=== PATIENT | male | born 1945 | race Caucasian/White ===

== ENCOUNTER 2019-06-10 09:51 | Emergency (ER) | payer BC, MEDICARE ==
[~2019-06-10] VITALS: Ht 188 cm; Wt 190.0 kg
[2019-06-10] MEDS ORDERED: CARV6.25 (10:01)
[2019-06-10] MEDS ORDERED: CVS1TAB PO (10:01)
[2019-06-10] MEDS ORDERED: FAMO40TA3 (10:01)
[2019-06-10] MEDS ORDERED: MOME50SP NARES (10:01)
[2019-06-10] MEDS ORDERED: NITR4TASL SL (10:01)
[2019-06-10] MEDS ORDERED: ATOR1TAB21 (10:01)
[2019-06-10] MEDS ORDERED: XARE20TA (10:01)
[2019-06-10] MEDS ORDERED: ENTR1TAB (10:01)
[2019-06-10] MEDS ORDERED: LEVO88TA3 (10:01)
[2019-06-10] MEDS ORDERED: LASI20TA3 PO (10:01)
[2019-06-10 10:40] LABS: BASO % 0.6 % (0.0-1.0); EOS # 0.1 10^3/uL (0.0-0.5); HEMATOCRIT 43.8 % (42.0-52.0); HEMOGLOBIN 14.5 g/dl (13.5-17.5); LYMPH # 0.9 10^3/uL (1.5-5.0); LYMPH % 18.2 % (24.0-44.0); MEAN CORPUSCULAR HEMOGLOBIN 32.6 pg (27.0-33.0); MEAN CORPUSCULAR HGB CONC 33.1 g/dl (32.0-36.5); MEAN CORPUSCULAR VOLUME 98.4 fl (80.0-96.0); MONO # 0.5 10^3/uL (0.0-0.8); MONO % 10.2 % (0.0-5.0); NEUTROPHILS # 3.4 10^3/uL (1.5-8.5); NEUTROPHILS % 68.8 % (36.0-66.0); PLATELET COUNT, AUTOMATED 167 10^3/uL (150-450); RED BLOOD COUNT 4.45 10^6/uL (4.30-6.10); WHITE BLOOD COUNT 4.9 10^3/uL (4.0-10.0)
[2019-06-10] MEDS ORDERED: NS 500 ML IV ONE (10:45)
[2019-06-10 10:52] LABS: INR 1.64; PROTHROMBIN TIME 19.2 SECONDS (11.8-14.0)
[2019-06-10 11:11] LABS: ALBUMIN 3.6 GM/DL (3.2-5.2); ALT/SGPT 23 U/L (12-78); BILIRUBIN,DIRECT 0.2 MG/DL (0.0-0.2); BILIRUBIN,TOTAL 0.8 MG/DL (0.2-1.0); BLOOD UREA NITROGEN 16 MG/DL (7-18); CALCIUM LEVEL 8.8 MG/DL (8.8-10.2); CARBON DIOXIDE LEVEL 28 MEQ/L (21-32); CHLORIDE LEVEL 105 MEQ/L (98-107); CK-MB VALUE MASS 1.8 NG/ML (<3.6); CPK CREATINE PHOSPHOKINASE 59 U/L (39-308); CREATININE FOR GFR 0.98 MG/DL (0.70-1.30); FREE T4 1.31 NG/DL (0.76-1.46); GLOMERULAR FILTRATION RATE > 60.0 (>42); GLUCOSE, FASTING 101 MG/DL (70-100); MAGNESIUM LEVEL 2.3 MG/DL (1.8-2.4); MB/CK RELATIVE INDEX 3.05 (< OR =4); NT-PRO BNP 3593 PG/ML (<125); POTASSIUM SERUM 4.7 MEQ/L (3.5-5.1); SODIUM LEVEL 140 MEQ/L (136-145); THYROID STIMULATING HORMONE 0.148 uIU/ML (0.358-3.740); TOTAL PROTEIN 6.6 GM/DL (6.4-8.2); TROPONIN I < 0.02 NG/ML (< 0.10)
--- NOTE | 2019-06-10 12:38 | REP ---
CHEST, SINGLE VIEW: Single view of the chest is performed and compared to prior study of 04/12/2014. There is cardiomegaly. Mediastinal silhouette is unremarkable and unchanged. There is a left dual lead pacemaker. There is linear fibroatelectatic change in the right base. No consolidating infiltrate is seen. Electronically Signed by Max Winkler MD 06/10/2019 06:02 P
[2019-06-10 14:00] VITALS: BP 97/65
--- NOTE | 2019-06-10 14:02 | ECGEPIP ---
[facility] - ED Test Date: 2019-06-10 Pat Name: DEYVI TABARES Department: Room: - Gender: Male Personal Assistant: PMO : 1945 Requested By: Gale Hogan Order Number: [id number] Reading MD: Gale Hogan Measurements Intervals [place] Rate: 100 P: -83 [place]: 239 QRS: 267 QRSD: 190 T: 95 QT: 369 QTc: 476 Interpretive Statements ELECTRONIC VENTRICULAR PACEMAKER ABNORMAL RHYTHM ECG NO PRIOR Electronically Signed on 06-10-2019 14:02:36 EDT by Gale Hgoan
== END 2019-06-10 14:10 | disposition home or self-care (01) ==
LOC: M ED 09:51
DX: R00.2 Palpitations (principal); I51.7 Cardiomegaly; R06.02 Shortness of breath; R53.83 Other fatigue; R53.1 Weakness; I48.91 Unspecified atrial fibrillation; I25.2 Old myocardial infarction; Z95.0 Presence of cardiac pacemaker; Z79.899 Other long term (current) drug therapy; Z79.01 Long term (current) use of anticoagulants